=== PATIENT | female | born 1980 | race Caucasian/White ===

== ENCOUNTER 2017-11-02 20:42 | Inpatient (IN) | payer MEDICAID, OTHER ==
[2017-11-02] MEDS ORDERED: TYLENOL PO PRN (21:34)
[2017-11-02] MEDS ORDERED: LACTATED RINGERS 1,000 ML IV SCH ×2 (22:00→23:00)
[2017-11-02 22:08] LABS: Basophils % (Auto) 0.6 % (0.0-1.8); Eosinophils % (Auto) 0.8 % (0.0-4.3); Hematocrit 27.1 % (30.3-42.9); Hemoglobin 8.1 gm/dl (10.1-14.3); Mean Corpuscular HGB Conc 30 % (30-34); Platelet Count 239 K/mm3 (140-440); Red Blood Count 4.03 M/mm3 (3.65-5.03); Red Cell Distribution Width 19.8 % (13.2-15.2); White Blood Count 11.8 K/mm3 (4.5-11.0)
[2017-11-02 22:09] LABS: Mean Corpuscular Hemoglobin 20 pg (28-32); Mean Corpuscular Volume 67 fl (79-97)
[2017-11-02] MEDS ORDERED: APRESOLINE IV ONE (22:15)
[2017-11-02] MEDS ORDERED: MAGNESIUM SULFATE 4GM/100ML 4 GM/100 ML BAG IV ONE (22:19)
[2017-11-02] MEDS ORDERED: CERVIDIL VG ONE (22:27)
[2017-11-02] MEDS ORDERED: POLYCILLIN/NS 2 GM/100 ML 2 GM/100 ML BAG IV ONE (22:27)
--- NOTE | 2017-11-02 22:41 | Ultrasound Report ---
FINAL REPORT EXAM: US OB BPP WO NON-STRESS HISTORY: decreased movement TECHNIQUE: Biophysical profile obstetrical ultrasound PRIORS: None. FINDINGS: Biophysical profile scoring 2 movement 2 tone 2 breathing 0 fluid 6/8 overall score heart rate 148 BPM. Only a tiny pocket of amniotic fluid could be identified measuring 0.9 cm in diameter. IMPRESSION: Biophysical profile score is 6/8
[2017-11-02 22:47] LABS: Alanine Aminotransferase 5 units/L (7-56); Albumin 2.8 g/dL (3.9-5); Albumin/Globulin Ratio 0.8 %; Alkaline Phosphatase 115 units/L (35-129); Anion Gap 17 mmol/L; BUN/Creatinine Ratio 20; Blood Urea Nitrogen 10 mg/dL (7-17); Carbon Dioxide 19 mmol/L (22-30); Glucose 95 mg/dL (65-100); Potassium 3.9 mmol/L (3.6-5.0); Sodium 134 mmol/L (137-145); Total Protein 6.5 g/dL (6.3-8.2)
--- NOTE | 2017-11-02 22:49 | History and Physical Report ---
History of Present Illness Date of examination: 11/02/17 Date of admission: 11/02/17 21:34 Chief complaint: Decreased movement for past 2 days; contractions since this morning. History of present illness: 37 year old presents to L&D complaining of contractions since this morning and decreased movement for the past 2 days. Patient states she has been receiving care since mid August at [facility]. She states that before that she did not receive any care. Patient does not speak Romanian. Patient does not have any records with her and no records are available in L&D [facility]. Patient reports she has type 2 diabetes which she had before ; she states she has not been following ADA diet, has not been checking her blood sugars (could not afford glucometer and test strips), and is not taking any medications for diabetes. Patient denies any history of hypertension. She states she has not had any problems with this other than the type 2 diabetes. Patient states she has not been tested for GBS. Patient states she had an ultrasound done at the clinic sometime in August 2017 which said her due date is 11/25/17. Thus patient would be 36 weeks, 5 days gestation today. Patient reports she has a headache. She denies visual changes or nausea/vomiting. She states she has had some swelling in her legs and feet. Denies generalized edema. Patient has had 2 previous vaginal births. She denies any history of surgeries in the past. She is currently taking a PNV daily. She denies any medication allergies. Past History Past Medical History: diabetes (type 2 diabetes (existed before )), other (obesity) Past Surgical History: no surgical history TOWER HAND History: denies: fibroids, herpes Family/Genetic History: none Social history: , lives with family, full code. denies: smoking, alcohol abuse, prescription drug abuse, IV drug use - Obstetrical History Expected Date of Delivery: 11/25/17 Actual Gestation: 36 Week(s) 5 Day(s) : 3 Para: 2 Hx # Term Pregnancies: 2 Number of Pregnancies: 1 Spontaneous Abortions: 0 Induced : 0 Number of Living Children: 2 Medications and Allergies Allergies Allergy/AdvReac Type Severity Reaction Status Date / Time No Known Drug Allergies Allergy none Verified 11/02/17 21:26 Active Meds: Active Medications Acetaminophen (Tylenol) 650 mg PO Q4H PRN PRN Reason: Pain MILD(1-3)/Fever >100.5/RUBIO Dinoprostone (Cervidil) 10 mg VG ONCE ONE Stop: 11/02/17 22:28 Hydralazine HCl (Apresoline) 10 mg IV ONCE ONE Stop: 11/02/17 22:16 Lactated Ringer's (Lactated Ringers) 1,000 mls @ 125 mls/hr IV DIRECT SABINE Magnesium Sulfate (Magnesium Sulfate 40gm/1000ml) 40 gm in 1,000 mls @ 50 mls/ hr IV DIRECT SABINE PRN Reason: 2 GM/HR Magnesium Sulfate (Magnesium Sulfate 4gm/100ml) 4 gm in 100 mls @ 300 mls/hr IV ONCE ONE Stop: 11/02/17 22:38 Ampicillin Sodium (Polycillin/Ns 2 Gm/100 Ml) 2 gm in 100 mls @ 100 mls/hr IV ONCE ONE PRN Reason: Protocol Stop: 11/02/17 23:26 Lactated Ringer's (Lactated Ringers) 1,000 mls @ 125 mls/hr IV DIRECT SABINE Oxytocin/Sodium Chloride (Pitocin/Ns 20 Unit/1000ml Drip) 20 units in 1,000 mls @ 125 mls/hr IV DIRECT SABINE Ampicillin Sodium (Polycillin/Ns 1 Gm/50 Ml) 1 gm in 50 mls @ 100 mls/hr IV Q4HR SABINE PRN Reason: Protocol Labetalol HCl (Normodyne) 200 mg PO BID [facility] Review of Systems All systems: negative (contractions since this morning and decreased movement for 2 days and headache today) - Vital Signs Vital signs: Vital Signs Pulse BP 77 180/86 11/02/17 21:02 11/02/17 21:02 Temp Pulse Resp BP Pulse Ox 97.1 F L 66 18 166/79 100 11/02/17 22:05 11/02/17 22:37 11/02/17 22:05 11/02/17 22:11 11/02/17 22:37 - Physical Exam Cardiovascular: Regular rate, Normal S1, Normal S2 Lungs: Positive: Clear to auscultation Abdomen: Positive: normal appearance, soft. Negative: distention, tenderness, guarding, rigidity Genitourinary (Female): Positive: normal external genitalia, normal perenium Vagina: Positive: normal moisture Uterus: Positive: enlarged. Negative: tender Anus/Rectum: Positive: normal perianal skin Extremities: Positive: normal, edema (mild bilateral pedal edema). Negative: tenderness - Obstetrical FHR: category 2 (FHR baseline 150 with minimal to moderate variability and occasional variable FHR deceleration (variables improved with position change and O2)) Uterine Contraction Monitor Mode: External Cervical Dilatation: 1 Cervical Effacement Percentage: 70 station: -3 Uterine Contraction Pattern: Absent Results Result Diagrams: 11/02/17 21:50 11/02/17 21:50 Abnormal lab results 11/02/17 11/02/17 Range/Units 21:12 21:50 WBC 11.8 H (4.5-11.0) K/mm3 Hgb 8.1 L (10.1-14.3) gm/dl Hct 27.1 L (30.3-42.9) % MCV 67 L (79-97) fl MCH 20 L (28-32) pg RDW 19.8 H (13.2-15.2) % Coleman % (Auto) 7.7 H (0.0-7.3) % Coleman # 0.9 H (0.0-0.8) K/mm3 Seg Neutrophils # 8.1 H (1.8-7.7) K/mm3 POC Glucose 108 H (70-105) All other labs normal. Assessment and Plan A: at 36 weeks, 5 days gestation. Severe preeclampsia. GBS unknown. Type 2 diabetes (not controlled during ). 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 P: Admit. GBS prophylaxis. Medication to lower BP. Magnesium Sulfate prophylaxis. Preeclamptic labs and 24 hour urine. Consult[address] with Dr. King regarding care of this patient. Informed Dr. King regarding severe preeclampsia, diabetes, oligohydramnios, late gestation (and measuring small for dates on US), and interventions ordered and taken. Dr. King states he agrees with management plan and cervical ripening/induction of labor for preeclampsia. Discussed management plan with patient. Patient states she agrees with management plan. Discussed with patient risks and benefits of Cervidil cervical ripening and Pitocin induction of labor. Patient consented to Cervidil cervical ripening and Pitocin induction of labor.
[2017-11-02] MEDS ORDERED: PITOCin/NS 20 UNIT/1000ML DRIP 20 UNITS/1,000 ML BAG IV SCH (23:00)
[2017-11-02 23:08] LABS: HIV-1 Antigen p24 Non React (Non React); HIVR-1/2 Ab Non React (Non React)
[2017-11-02] MEDS: MAGNESIUM SULFATE 40GM/1000ML 40 GM/1,000 ML BAG IV SCH (23:19)
[2017-11-02 23:30] LABS: Bilirubin,Urine NEG (Negative); Blood,Urine NEG (Negative); Ketones,Urine NEG (Negative); Leukocyte Esterase,Urine NEG (Negative); Nitrite,Urine NEG (Negative); Urobilinogen,Urine < 2.0 mg/dL (<2.0)
[2017-11-03] MEDS: PITOCin/NS 30 UNIT/500ML 30 UNITS/500 ML BAG IV SCH ×2 (00:03→01:01)
[2017-11-03] MEDS: NORMODYNE PO SCH ×3 (00:09→21:19)
[2017-11-03] MEDS ORDERED: BICITRA PO ONE (01:50)
[2017-11-03] MEDS ORDERED: REGLAN IV ONE (01:50)
[2017-11-03] MEDS ORDERED: PEPCID IV ONE (01:50)
[2017-11-03] MEDS ORDERED: EMLA TP PRN (01:50)
[2017-11-03] MEDS ORDERED: PITOCin/NS 20 UNIT/1000ML DRIP 20 UNITS/1,000 ML BAG IV SCH ×2 (02:00→05:00)
[2017-11-03] MEDS ORDERED: ANCEF/STERILE WATER 2 GM/20 ML 2 GM/20 ML SYRINGE IV NR (02:00)
[2017-11-03] MEDS ORDERED: LACTATED RINGERS 1,000 ML IV SCH (02:00)
[2017-11-03] MEDS ORDERED: MORPHINE ONE (02:29)
--- NOTE | 2017-11-03 02:32 | Anesthesia Consultation ---
Anesthesia Consult and Med Hx Date of service: 11/03/17 - Airway Anesthetic Teeth Evaluation: Good ROM Head & Neck: Inadequate Mental/Hyoid Distance: Adequate Mallampati Class: Class III Intubation Access Assessment: Possibly Difficult - Pulmonary Exam CTA: Yes - Cardiac Exam Cardiac Exam: RRR Anesthetic Concerns: R upper central incisor loose - Pre-Operative Health Status ASA Pre-Surgery Classification: ASA3, Emergency Proposed Anesthetic Plan: Spinal - Pulmonary Hx Asthma: No - Cardiovascular System Hx Hypertension: Yes (PIH) - Central Nervous System Hx Seizures: No Hx Psychiatric Problems: No - Endocrine Hx Renal Disease: No Hx Non-Insulin Dependent Diabetes: Yes Hx Hypothyroidism: No Hx Hyperthyroidism: No - Hematic Hx Anemia: No Hx Sickle Cell Disease: No - Other Systems Hx Alcohol Use: No Hx Obesity: Yes
--- NOTE | 2017-11-03 02:32 | Anesthesia Day of Surgery ---
Anesthesia Day of Surgery - Day of Surgery Patient Examined: Yes Patient H&P Reviewed: Yes Patient is NPO: Yes
[2017-11-03] MEDS ORDERED: POLYCILLIN/NS 1 GM/50 ML 1 GM/50 ML BAG IV SCH (02:34)
[2017-11-03] MEDS ORDERED: WATER FOR IRRIG STERILE IR ONE (03:00)
[2017-11-03] MEDS ORDERED: NACL 0.9% IR ONE (03:00)
[2017-11-03] MEDS ORDERED: ANCEF IV ONE (03:00)
[2017-11-03] MEDS ORDERED: ZOFRAN ONE (03:20)
[2017-11-03] MEDS ORDERED: NEO SYNEPHRINE/NS Syringe(OR USE) IV ONE (03:26)
--- NOTE | 2017-11-03 04:02 | Operative Report ---
Operative Report Operative Report: DATE: 11/03/2017 PREOPERATIVE DIAGNOSIS: 37-year-old at 36+4 weeks, Diabetes type 2, IUGR, preeclampsia, category 2 tracing POSTOP DIAGNOSIS: As above NAME OF PROCEDURE: Primary low transverse section SURGEON: ARNOLD MEHTA MD SURGERY NURSE: [] ANESTHESIA: Spinal EBL: 500 mL PATHOLOGY SPECIMEN: None URINE OUTPUT: 75 mL FINDINGS: Female infant in cephalic presentation, time of delivery 3:18 AM, weight 4 lbs. 5 oz. or 1949 g, Apgars 8 and 9, normal uterus tubes and ovaries bilaterally DESCRIPTION OF PROCEDURE: After informed consent, patient was taken to the operating room where she was prepped and draped in a sterile fashion. Pfannestial incision was performed 2 cm above the pubic symphysis. This was then carried down to the underlying rectus fascia which was scored in the midline. The fascial incision was extended laterally with the use of Leong scissors, anterior leaf was then grasped with Sandra's elevated dissected sharply and bluntly off the underlying rectus. In a similar fashion the inferior leaf was grasped elevated dissected sharply and bluntly off the underlying rectus. The rectus was in the midline and the peritoneal cavity was entered without difficulty. After good visualization of the bladder the peritoneal layer was extended up and down; bladder blade was placed in the patient's pelvic cavity, bladder flap was created without difficulty. A hysterotomy incision was then performed with clear amniotic fluid noted. Infant in cephalic presentation was delivered without difficulty in the usual manner; cord was clamped cut and was handed over to waiting NICU staff. The placenta was then delivered intact, the uterus was then exteriorized cleared of all clots and debris. Her hysterotomy incision was then closed in a running locked fashion with 0 Vicryl on a CTX; using the same suture were able to imbricate the initial layer. The uterus was then returned to the patient's pelvic cavity; the peritoneal edges were grasped with hemostats and Lay's; irrigation was used to clear the gutters of all clots and debris. Tisseel hemostatic agent was applied copiously over the hysterotomy incision. The peritoneal layer was closed in a running fashion with 3-0 Vicryl; the rectus was reapproximated with a single [id number] stitch. The fascia was then closed in a running fashion with 0 Vicryl; the subcutaneous layer was reapproximated with a single [id number] stitch. The skin was then closed in a subcuticular manner with 4-0 Monocryl. She tolerated the procedure well lap and instrument counts were correct 2, she did receive 2 grams of Ancef prior to the procedure. She is transferred to PACU in stable condition.
[2017-11-03] MEDS ORDERED: TORADOL IV PRN (04:04)
[2017-11-03] MEDS ORDERED: LANSINOH TP PRN (04:04)
[2017-11-03] MEDS ORDERED: SENOKOT PO PRN (04:04)
[2017-11-03] MEDS ORDERED: ANUCORT-HC PR PRN (04:04)
[2017-11-03] MEDS ORDERED: NARCAN 0.4 MG/1 ML IV PRN (04:04)
[2017-11-03] MEDS ORDERED: TUCKS PAD TP PRN (04:04)
[2017-11-03] MEDS ORDERED: ZOFRAN IV PRN ×2 (04:04→04:18)
[2017-11-03] MEDS ORDERED: MYLICON PO PRN (04:04)
[2017-11-03] MEDS ORDERED: APRESOLINE IV PRN (04:08)
[2017-11-03] MEDS ORDERED: D50W (25GM) Syringe IV PRN (04:10)
--- NOTE | 2017-11-03 04:17 | Post Anesthesia Evaluation ---
- Post Anesthesia Evaluation Patient Participated: Yes Airway Patent: Yes Stable Respiratory Function: Yes Temp > 96.8F: Yes Pain Manageable: Yes Adequeate Hydration: Yes Anesthesia Complications: No Block Receding Appropriately: Yes
[2017-11-03] MEDS ORDERED: DILAUDID IV PRN (04:19)
[2017-11-03] MEDS ORDERED: MORPHINE IV PRN (04:20)
[2017-11-03] MEDS ORDERED: D5LR 1,000 ML IV SCH (05:00)
[2017-11-03] MEDS ORDERED: SODIUM CHLORIDE FLUSH SYRINGE 10 ML IV NR (05:00)
[2017-11-03] MEDS: MAGNESIUM SULFATE 40GM/1000ML 40 GM/1,000 ML BAG IV SCH (05:14)
[2017-11-03] MEDS: PERCOCET 5/325 PO PRN (18:20)
[2017-11-03 19:32] LABS: Hematocrit 23.5 % (30.3-42.9); Hemoglobin 6.9 gm/dl (10.1-14.3)
--- NOTE | 2017-11-03 21:39 | Event Note ---
Date: 11/03/17 Hemoglobin 6.9. Hematocrit 23.5. Spoke with patient and informed her of H/H results. Patient declined blood transfusion. Patient states she is not symptomatic at this time.
[2017-11-04] MEDS: PERCOCET 5/325 PO PRN ×3 (03:53→18:23)
[2017-11-04] MEDS ORDERED: M-M-R II VACCINE SUB-Q ONE (04:04)
[2017-11-04] MEDS ORDERED: BOOSTRIX IM ONE (04:04)
--- NOTE | 2017-11-04 07:56 | Ultrasound Report ---
FINAL REPORT EXAM: US OB FOLLOW UP HISTORY: abdominal pain, vaginal bleeding TECHNIQUE: Transabdominal imaging was obtained the pelvis along with Doppler interrogation of the fetus. FINDINGS: There is a viable intrauterine in cephalic presentation with a sonographic gestational age of approximately 33 weeks 0 days based on measurements. Estimated weight is 1998 grams. A complete survey of organs was not obtained. The placenta is fundal in position and is grade 2. The heart rate is 148 BPM. The cervical length is 2.1 centimeters. The cervix is closed. The LORNA is 2.7 centimeters which is decreased. There is no evidence of placenta previa or abruption. IMPRESSION: Thirty-three weeks 0 day in cephalic presentation. Estimated weight is 1998 grams. Oligohydramnios. The LORNA is 2.7 centimeters. Grade 2 fundal placenta. No evidence of abruption. The cervix is closed
--- NOTE | 2017-11-04 09:30 | Progress Note ---
Assessment and Plan - Patient Problems (1) 36 weeks gestation of Current Visit: Yes Status: Acute (2) delivery delivered Current Visit: Yes Status: Acute Plan to address problem: Routine post op care. (3) Pre-eclampsia affecting puerperium Current Visit: Yes Status: Acute Plan to address problem: Patient recieved magnesium sulftate. Her BP is stable. She will continue labetolol. Will continue BP monitoring. 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 She declined blood transfusion yesterday. Will do orthostatics BP/pulse this AM. (5) Diabetes Current Visit: Yes Status: Acute Qualifiers: Diabetes mellitus type: type 2 Plan to address problem: Patient is on insulin sliding scale. (6) Right calf pain Current Visit: Yes Status: Acute Plan to address problem: Venous doppler of the right lower extremity ordered STAT to r/o DVT. Subjective - Subjective Date of service: 11/04/17 Principal diagnosis: S/P C/section, pre-eclampsia, type-2 DM Interval history: Patient is a 37 year old who is S/P primary C/section 2 days ago for severe pre-eclampsia and non-reassuring tracing. She is also a type diabetic who has not been seeing any primary care doctor before this for glucose management. She was a late registrant to care and has been seen only once at [facility]. She had a sonogram which dated her with EDC of 11/25/17. She came in with contractions. Sonogram showed oligohydramnios and IUGR. Her BP was elevated and she was treated with magnesium sulfate. She was induced but the FHT became CAT 2 remote from delivery and she had a C/section. Magnesium sulfate was continued post operatively for pre-eclampsia. She is on finger stick with a sliding scale insulin. Her course is also complicated by anemia with H/H of 6.9/23. She displayed symptoms yesterday and was offered blood transfusion which she declined. This AM, her fasting glucose was 66, BP stable. She complains of dizziness but denies any chest pain or palpitation. CBC ordered stat. Orthostatic ordered. She also complains of right calf pain since last night. Venous doppler ordered to rule out DVT. She is otherwise tolerating regular diet well. Objective - Vital Signs Latest vital signs: Vital Signs Temp Pulse Resp BP BP Pulse Ox 11/03/17 21:30 98.1 F 90 18 134/69 11/03/17 21:19 90 134/69 11/03/17 16:01 97.5 F L 87 18 133/73 97 11/03/17 12:26 97.5 F L 18 133/72 11/03/17 10:31 98.4 F 93 H 18 124/71 95 11/03/17 10:00 124/74 Intake and Output 11/03/17 11/04/17 11/04/17 23:59 07:59 15:59 Output Total 400 Balance -400 Output: Urine 400 Indwelling Catheter 400 Other: Intake, Other Source Saline Solution Total, Output Amount 400 # Voids Indwelling Catheter 1 Void 1 - Exam Cardiovascular: Present: Normal S1, Normal S2 Lungs: Present: Clear to auscultation Extremities: Present: other (Right calf TN) Deep Tendon Reflex Grade: Normal +2 - Labs Labs: Abnormal lab results 11/03/17 11/03/17 11/04/17 Range/Units 18:04 21:05 08:41 Hgb 6.9 L (10.1-14.3) gm/dl Hct 23.5 L (30.3-42.9) % POC Glucose 153 H 64 L (70-105)
[2017-11-04 09:41] LABS: Basophils % (Auto) 0.8 % (0.0-1.8); Eosinophils % (Auto) 0.5 % (0.0-4.3); Hematocrit 21.4 % (30.3-42.9); Hemoglobin 6.4 gm/dl (10.1-14.3); Mean Corpuscular HGB Conc 30 % (30-34); Platelet Count 171 K/mm3 (140-440); Red Blood Count 3.19 M/mm3 (3.65-5.03); Red Cell Distribution Width 19.6 % (13.2-15.2); White Blood Count 11.1 K/mm3 (4.5-11.0)
[2017-11-04 09:42] LABS: Mean Corpuscular Hemoglobin 20 pg (28-32); Mean Corpuscular Volume 67 fl (79-97)
[2017-11-04] MEDS: PRENATAL VITAMIN PO SCH (11:18)
[2017-11-04] MEDS: FEOSOL PO SCH (11:18)
[2017-11-04] MEDS: NORMODYNE PO SCH ×2 (11:19→21:59)
[2017-11-04] MEDS ORDERED: NACL 0.9% 500 ML 500 ML IV NR (11:19)
--- NOTE | 2017-11-04 11:26 | Progress Note ---
Assessment and Plan - Patient Problems (1) 36 weeks gestation of Current Visit: Yes Status: Acute (2) delivery delivered Current Visit: Yes Status: Acute Plan to address problem: Routine post op care. (3) Pre-eclampsia affecting puerperium Current Visit: Yes Status: Acute Plan to address problem: Patient recieved magnesium sulftate which was discontinued yesterday. Her BP is stable. She will continue labetolol. Will continue BP monitoring. 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 She declined blood transfusion yesterday. She is currently orthostatic (BP/pulse). 2 units PRBC transfusion ordered. CBC 3 hrs after second unit. Nurse Marian was made aware of that order. (5) Diabetes Current Visit: Yes Status: Acute Qualifiers: Diabetes mellitus type: type 2 Plan to address problem: Patient is on insulin sliding scale. Will continue FS. (6) Deep vein thrombosis Current Visit: Yes Status: Acute Plan to address problem: Venous doppler result was discussed with patient. Lovenox 1mg/kg S.C every 12 hours ordered, first alexandre to be given STAT. Nurse Fonseca was called and told that this ordered has been written and patient needs to get the lovenox diana. Subjective - Subjective Date of service: 11/04/17 Principal diagnosis: S/P C/section, pre-eclampsia, type-2 DM, right leg DVT, symptomatic anemia Interval history: Patient is a 37 year old who is S/P primary C/section 2 days ago for severe pre-eclampsia and non-reassuring tracing. She is also a type 2 diabetic who has not been seeing any primary care doctor before this for glucose management. She was a late registrant to care and has been seen only once at [facility]. On admission, her BP was elevated and she was treated with magnesium sulfate for pre-eclampsia. She was induced but the FHT became CAT 2 remote from delivery and she had a C/section. Magnesium sulfate was continued post operatively and discontinued yesterday. She is on finger stick with a sliding scale insulin. Her course is also complicated by anemia with H/H of 6.9/. She displayed symptoms yesterday and was offered blood transfusion which she declined. This AM, she complains of dizziness but denies any chest pain or palpitation. CBC at 9:30 showed H/H of 6.2/ and she is currently orthostatic. Her fasting glucose was 66 and she is otherwise tolerating regular diet well. She is on labetolol and BP is stable. She also complains of right calf pain since last night. Venous doppler showed right peroneal vein thrombosis. Objective - Vital Signs Latest vital signs: Vital Signs Temp Pulse Resp BP BP Pulse Ox 11/04/17 11:19 122/78 11/04/17 09:48 96 H 20 139/70 95 11/04/17 09:46 103 H 20 114/54 96 11/04/17 09:45 92 H 18 137/72 96 11/04/17 08:24 98.0 F 90 18 138/71 99 11/03/17 21:30 98.1 F 90 18 134/69 11/03/17 21:19 90 134/69 11/03/17 16:01 97.5 F L 87 18 133/73 97 11/03/17 12:26 97.5 F L 18 133/72 Intake and Output 11/03/17 11/04/17 11/04/17 23:59 07:59 15:59 Intake Total 240 Output Total 400 Balance -400 240 Intake: Oral 120 Intake, Free Water 120 Output: Urine 400 Indwelling Catheter 400 Other: Intake, Other Source Saline Solution Total, Intake Amount 120 Total, Output Amount 400 # Voids Indwelling Catheter 1 Void 1 1 - Exam Cardiovascular: Present: Normal S1, Normal S2 Lungs: Present: Clear to auscultation Extremities: Present: other (right calf TN and + Virginia's sign.) Deep Tendon Reflex Grade: Normal +2 - Labs Labs: Abnormal lab results 11/02/17 11/03/17 11/03/17 Range/Units 21:50 18:04 21:05 WBC (4.5-11.0) K/mm3 RBC (3.65-5.03) M/mm3 Hgb 6.9 L (10.1-14.3) gm/dl Hct 23.5 L (30.3-42.9) % MCV (79-97) fl MCH (28-32) pg RDW (13.2-15.2) % Seg Neutrophils % (40.0-70.0) % Seg Neutrophils # (1.8-7.7) K/mm3 POC Glucose 153 H (70-105) Crossmatch See Detail 11/04/17 11/04/17 Range/Units 08:41 09:24 WBC 11.1 H (4.5-11.0) K/mm3 RBC 3.19 L (3.65-5.03) M/mm3 Hgb 6.4 L (10.1-14.3) gm/dl Hct 21.4 L (30.3-42.9) % MCV 67 L (79-97) fl MCH 20 L (28-32) pg RDW 19.6 H (13.2-15.2) % Seg Neutrophils % 79.3 H (40.0-70.0) % Seg Neutrophils # 8.8 H (1.8-7.7) K/mm3 POC Glucose 64 L (70-105) Crossmatch
[2017-11-04] MEDS ORDERED: Fluarix Quad 2017-2018(36 MOS+ IM ONE (12:00)
[2017-11-04] MEDS: LOVENOX SUB-Q SCH ×2 (12:21→22:01)
[2017-11-04 13:06] LABS: Basophils % (Auto) 0.4 % (0.0-1.8); Eosinophils % (Auto) 0.6 % (0.0-4.3); Hematocrit 21.9 % (30.3-42.9); Hemoglobin 6.5 gm/dl (10.1-14.3); Mean Corpuscular HGB Conc 30 % (30-34); Platelet Count 179 K/mm3 (140-440); Red Blood Count 3.24 M/mm3 (3.65-5.03); Red Cell Distribution Width 19.8 % (13.2-15.2); White Blood Count 13.1 K/mm3 (4.5-11.0)
[2017-11-04 13:07] LABS: Mean Corpuscular Hemoglobin 20 pg (28-32); Mean Corpuscular Volume 68 fl (79-97)
[2017-11-05] MEDS: PERCOCET 5/325 PO PRN ×3 (05:04→20:41)
--- NOTE | 2017-11-05 08:10 | Vascular Lab Report ---
Right Lower Extremity Venous Duplex Study: Reason for Exam: Pain of the right lower extremity. Comments on the Right: Acute deep venous thrombosis is noted in the peroneal vein. The remaining veins visualized are freely compressible without evidence of internal echogenicity. Spontaneous and phasic flow is present proximally. Comments on the Left: A limited duplex study was done of the proximal veins of the left lower extremity. All veins visualized are freely compressible without evidence of internal echogenicity. Flow is spontaneous and phasic throughout. No evidence of acute or chronic thrombus is seen in any of the vessels visualized. Impression: Acute DVT in the right lower extremity.
--- NOTE | 2017-11-05 09:12 | Event Note ---
Date: 11/05/17 S: Still with pain in in right calf, otherwise feels ok. Asking when she can go home O: BP 140/80's - 130/80's A: S/P POD 2 Right leg DVT P; Continue post op care
[2017-11-05] MEDS: PRENATAL VITAMIN PO SCH (09:52)
[2017-11-05] MEDS: FEOSOL PO SCH (09:52)
[2017-11-05] MEDS: LOVENOX SUB-Q SCH ×2 (09:53→22:18)
[2017-11-05] MEDS: NORMODYNE PO SCH ×2 (09:53→22:21)
[2017-11-05] MEDS ORDERED: NORCO 7.5/325 PO PRN (13:42)
[2017-11-05] MEDS ORDERED: MOTRIN PO SCH (14:00)
[2017-11-06] MEDS: PERCOCET 5/325 PO PRN ×2 (06:57→17:01)
[2017-11-06] MEDS: PRENATAL VITAMIN PO SCH ×2 (10:29→10:30)
[2017-11-06] MEDS: NORMODYNE PO SCH ×2 (10:29→22:58)
[2017-11-06] MEDS: FEOSOL PO SCH (10:30)
[2017-11-06] MEDS: LOVENOX SUB-Q SCH ×2 (10:30→22:58)
--- NOTE | 2017-11-06 11:24 | Progress Note ---
Assessment and Plan - Patient Problems (1) 36 weeks gestation of Current Visit: Yes Status: Acute (2) delivery delivered Current Visit: Yes Status: Acute Plan to address problem: Routine post op care. (3) Pre-eclampsia affecting puerperium Current Visit: Yes Status: Acute Plan to address problem: Patient recieved magnesium sulftate which was discontinued after 24 hours. Her BP is stable. She will continue labetolol. Will continue BP monitoring. (4) Anemia Current Visit: Yes Status: Acute Qualifiers: Anemia type: iron deficiency Iron deficiency anemia type: chronic blood loss Qualified Code(s): D50.0 - Iron deficiency anemia secondary to blood loss (chronic) Plan to address problem: Patient reported dizziness 2 days ago. She was orthostatic (BP/pulse). 2 units PRBC transfusion were ordered. But, patient refused the transfusion and said that she did not have any more dizziness. Her son and were present and translated. They understaood the reason for the transfusion and explained that to the patient. Patient said that she understood as well. Will do CbC before discharge from hospital. (5) Diabetes Current Visit: Yes Status: Acute Qualifiers: Diabetes mellitus type: type 2 Plan to address problem: Patient is on insulin sliding scale. Will continue FS. (6) Deep vein thrombosis Current Visit: Yes Status: Acute Plan to address problem: Venous doppler result was discussed with patient. She has been on lovenox. Will reasess her in AM. Subjective - Subjective Date of service: 11/06/17 Principal diagnosis: S/P C/section, pre-eclampsia, type-2 DM, right leg DVT, symptomatic anemia Interval history: Patient is a 37 year old who is S/P primary C/section 3 days ago for severe pre-eclampsia and non-reassuring tracing. She is also a type 2 diabetic who has not been seeing any primary care doctor before this for glucose management. She was a late registrant to care and has been seen only once at [facility]. She is S/P C/section for NRFHT. She is POD # 3 today. She had calf pain 2 days ago and venous doppler showed right peroneal vein thrombosis. She was started on lovenox therapeutic dose. This AM, she still c/o pain in her right calf but less than before. She denies any bruising. Objective - Vital Signs Latest vital signs: Vital Signs Temp Pulse Resp BP BP Pulse Ox 11/06/17 10:29 75 143/71 11/06/17 08:56 98.3 F 79 20 152/77 97 11/06/17 04:00 98.6 F 88 18 142/76 95 11/06/17 00:40 98.9 F 93 H 18 144/74 94 11/05/17 22:21 81 144/76 11/05/17 17:30 98.2 F 105 H 20 168/91 11/05/17 12:00 97.9 F 104 H 20 155/72 Intake and Output 11/05/17 11/06/17 11/06/17 23:59 07:59 15:59 Intake Total 240 Balance 240 Intake: Oral 240 Other: Total, Intake Amount 120 # Voids Void 1 - Exam Cardiovascular: Present: Normal S1, Normal S2 Lungs: Present: Clear to auscultation Vulva: both: normal Extremities: Present: other (TN in right calf, + Virginia's sign.) Deep Tendon Reflex Grade: Normal +2 - Labs Labs: Abnormal lab results 11/02/17 Range/Units 21:50 Crossmatch See Detail
[2017-11-07] MEDS: PERCOCET 5/325 PO PRN (04:57)
--- NOTE | 2017-11-07 08:42 | Progress Note ---
Assessment and Plan - Patient Problems (1) 36 weeks gestation of Current Visit: Yes Status: Acute (2) delivery delivered Current Visit: Yes Status: Acute Plan to address problem: Routine post op care. (3) Pre-eclampsia affecting puerperium Current Visit: Yes Status: Acute Plan to address problem: Patient recieved magnesium sulftate which was discontinued after 24 hours. Her BP has been stable. She will continue labetolol. Will continue BP monitoring. (4) Anemia Current Visit: Yes Status: Acute Qualifiers: Anemia type: iron deficiency Iron deficiency anemia type: chronic blood loss Qualified Code(s): D50.0 - Iron deficiency anemia secondary to blood loss (chronic) Plan to address problem: Patient reported dizziness 2 days ago. She was orthostatic (BP/pulse). 2 units PRBC transfusion were ordered. But, patient refused the transfusion and said that she did not have any more dizziness. Her son and were present and translated. They understaood the reason for the transfusion and explained that to the patient. Patient said that she understood as well. Today, she denies any dizziness. Will continue to monitor her. Will do CBC before discharge from hospital. (5) Diabetes Current Visit: Yes Status: Acute Qualifiers: Diabetes mellitus type: type 2 Plan to address problem: Patient is on insulin sliding scale. Will continue FS. (6) Deep vein thrombosis Current Visit: Yes Status: Acute Plan to address problem: Venous doppler result was discussed with patient. She has been on lovenox. Will reasess her in AM. Subjective - Subjective Date of service: 11/07/17 Principal diagnosis: S/P C/section, pre-eclampsia, type-2 DM, right leg DVT, symptomatic anemia Interval history: Patient is a 37 year old who is S/P primary C/section 4 days ago for severe pre-eclampsia and non-reassuring tracing. She is also a type 2 diabetic who has not been seeing any primary care doctor before this for glucose management. She was a late registrant to care and has been seen only once at [facility]. She is S/P C/section for NRFHT. She is POD # 4 today. Her blood glucose and BP have been normal. She had calf pain 3 days ago and venous doppler showed right peroneal vein thrombosis. She was started on lovenox therapeutic dose. This AM, she still c/o pain in her right calf but less than before. She denies any bruising. Exam: tenderness in the right calf/popliteal area. I told the patient that will continue the lovenox and reassess her tomorrow. Objective - Vital Signs Latest vital signs: Vital Signs Temp Pulse Resp BP BP Pulse Ox 11/07/17 04:20 98.9 F 86 20 150/68 94 11/07/17 00:20 98.9 F 89 20 154/68 92 11/06/17 22:58 83 171/87 11/06/17 21:35 98.7 F 80 20 171/87 92 11/06/17 17:01 20 11/06/17 16:45 98.5 F 85 20 151/73 11/06/17 10:29 75 143/71 11/06/17 10:00 97.8 F 97 H 20 148/76 11/06/17 08:56 98.3 F 79 20 152/77 97 Intake and Output 11/06/17 11/07/17 11/07/17 23:59 07:59 15:59 Intake Total 240 120 Balance 240 120 Intake: Oral 240 120 Other: Total, Intake Amount 120 120 # Voids Void 1 1 - Exam Cardiovascular: Present: Normal S1, Normal S2 Lungs: Present: Clear to auscultation Vulva: both: normal Deep Tendon Reflex Grade: Normal +2
[2017-11-07] MEDS: PRENATAL VITAMIN PO SCH (10:36)
[2017-11-07] MEDS: LOVENOX SUB-Q SCH ×2 (10:36→22:45)
[2017-11-07] MEDS: FEOSOL PO SCH (10:37)
[2017-11-07] MEDS: NORMODYNE PO SCH ×2 (10:37→22:25)
[2017-11-08] MEDS: NORMODYNE PO SCH ×3 (09:03→22:49)
[2017-11-08] MEDS: LOVENOX SUB-Q SCH ×3 (09:04→22:51)
[2017-11-08] MEDS: PRENATAL VITAMIN PO SCH (09:04)
[2017-11-08] MEDS: FEOSOL PO SCH (09:04)
[2017-11-08] MEDS: PERCOCET 5/325 PO PRN ×2 (09:05→22:50)
--- NOTE | 2017-11-08 14:14 | Progress Note ---
Assessment and Plan - Patient Problems (1) 36 weeks gestation of Current Visit: Yes Status: Acute (2) delivery delivered Current Visit: Yes Status: Acute Plan to address problem: Routine post op care. (3) Pre-eclampsia affecting puerperium Current Visit: Yes Status: Acute Plan to address problem: Patient recieved magnesium sulftate which was discontinued after 24 hours. Her BP has been stable. She will continue labetolol. Will continue BP monitoring. (4) Anemia Current Visit: Yes Status: Acute Qualifiers: Anemia type: iron deficiency Iron deficiency anemia type: chronic blood loss Qualified Code(s): D50.0 - Iron deficiency anemia secondary to blood loss (chronic) Plan to address problem: Patient reported dizziness 3 days ago. She was orthostatic (BP/pulse). 2 units PRBC transfusion were ordered. But, patient refused the transfusion and said that she did not have any more dizziness. Her son and were present and translated. They understood the reason for the transfusion and explained that to the patient. Patient said that she understood as well. Today, she denies any dizziness. Will continue to monitor her. Will do CBC before discharge from hospital. (5) Diabetes Current Visit: Yes Status: Acute Qualifiers: Diabetes mellitus type: type 2 (6) Deep vein thrombosis Current Visit: Yes Status: Acute Plan to address problem: Venous doppler showed DVT. She has been on lovenox. Will reasess her in AM. Subjective - Subjective Date of service: 11/08/17 Principal diagnosis: S/P C/section, pre-eclampsia, type-2 DM, right leg DVT, symptomatic anemia Interval history: Patient is a 37 year old who is S/P primary C/section 5 days ago for severe pre-eclampsia and non-reassuring tracing. She is also a type 2 diabetic who has not been seeing any primary care doctor before this for glucose management. She was a late registrant to care and has been seen only once at [facility]. She is S/P C/section for NRFHT. She is POD # 5 today. Her blood glucose and BP have been normal. She had calf pain 4 days ago and venous doppler showed right peroneal vein thrombosis. She was started on lovenox therapeutic dose. This AM, she still c/o pain in her right calf but less than before. She denies any bruising. Exam: tenderness in the right calf/popliteal area. I told the patient that will continue the lovenox and reassess her tomorrow. Objective - Vital Signs Latest vital signs: Vital Signs Temp Pulse Resp BP BP Pulse Ox 11/08/17 09:03 87 179/90 11/08/17 08:10 98.0 F 87 20 179/90 92 11/08/17 08:09 81 98 11/08/17 08:08 98.0 F 83 20 179/90 95 11/08/17 00:00 98.6 F 80 20 158/71 11/07/17 22:25 147/70 11/07/17 18:45 98.4 F 84 20 159/72 97 Intake and Output 11/07/17 11/08/17 11/08/17 23:59 07:59 15:59 Intake Total 120 240 Balance 120 240 Intake: Oral 120 240 Other: Total, Intake Amount 120 240 # Voids Void 1 1 - Exam Cardiovascular: Present: Normal S1, Normal S2 Lungs: Present: Clear to auscultation
--- NOTE | 2017-11-09 09:23 | Progress Note ---
Assessment and Plan - Patient Problems (1) 36 weeks gestation of Current Visit: Yes Status: Acute (2) delivery delivered Current Visit: Yes Status: Acute Plan to address problem: Routine post op care. (3) Pre-eclampsia affecting puerperium Current Visit: Yes Status: Acute Plan to address problem: Patient recieved magnesium sulftate which was discontinued after 24 hours. Her BP has been stable. She will continue labetolol. Will continue BP monitoring. (4) Anemia Current Visit: Yes Status: Acute Qualifiers: Anemia type: iron deficiency Iron deficiency anemia type: chronic blood loss Qualified Code(s): D50.0 - Iron deficiency anemia secondary to blood loss (chronic) Plan to address problem: Patient reported dizziness 4 days ago. She was orthostatic (BP/pulse). 2 units PRBC transfusion were ordered. But, patient refused the transfusion and said that she did not have any more dizziness. Her son and were present and translated. They understood the reason for the transfusion and explained that to the patient. Patient said that she understood as well. Today, she denies any dizziness. Will continue to monitor her. Will do CBC before discharge from hospital. (5) Diabetes Current Visit: Yes Status: Acute Qualifiers: Diabetes mellitus type: type 2 Plan to address problem: Patient is on insulin sliding scale. Will continue FS. (6) Deep vein thrombosis Current Visit: Yes Status: Acute Plan to address problem: Venous doppler showed DVT. She has been on lovenox. Will reasess her in AM. Subjective - Subjective Date of service: 11/09/17 Principal diagnosis: S/P C/section, pre-eclampsia, type-2 DM, right leg DVT, symptomatic anemia Interval history: Patient is a 37 year old who is S/P primary C/section 6 days ago for severe pre-eclampsia and non-reassuring tracing. She is also a type 2 diabetic who has not been seeing any primary care doctor before this for glucose management. She was a late registrant to care and has been seen only once at [facility]. She is S/P C/section for NRFHT. She is POD # 6 today. Her blood glucose and BP have been normal. She had calf pain 4 days ago and venous doppler showed right peroneal vein thrombosis. She was started on lovenox therapeutic dose. This AM, she still c/o pain in her right calf but less than before. She denies any bruising. Exam: tenderness in the right calf/popliteal area but with decreasing intensity. I told the patient that will continue the lovenox and reassess her tomorrow. Objective - Vital Signs Latest vital signs: Vital Signs Temp Pulse Resp BP BP Pulse Ox 11/09/17 07:39 97.6 F 87 18 143/77 11/09/17 02:35 98.4 F 87 20 139/73 95 11/08/17 22:49 89 169/70 11/08/17 18:05 98.1 F 11/08/17 18:04 89 165/70 96 Intake and Output 11/08/17 11/09/17 11/09/17 23:59 07:59 15:59 Intake Total 550 360 Output Total 800 Balance -250 360 Intake: Oral 550 Intake, Free Water 360 Output: Urine 800 Void 800 Other: Total, Intake Amount 550 Total, Output Amount 800 # Voids Void 2 - Exam Cardiovascular: Present: Normal S1, Normal S2 Lungs: Present: Clear to auscultation Vulva: both: normal - Labs Labs: Abnormal lab results 11/09/17 Range/Units 07:41 POC Glucose 66 L (70-105)
[2017-11-09] MEDS: PRENATAL VITAMIN PO SCH (09:24)
[2017-11-09] MEDS: NORMODYNE PO SCH (09:24)
[2017-11-09] MEDS: FEOSOL PO SCH (09:24)
[2017-11-09] MEDS: LOVENOX SUB-Q SCH (09:25)
[2017-11-09] MEDS: PERCOCET 5/325 PO PRN (14:04)
--- NOTE | 2017-11-10 10:50 | Progress Note ---
Assessment and Plan - Patient Problems (1) 36 weeks gestation of Current Visit: Yes Status: Acute (2) delivery delivered Current Visit: Yes Status: Acute Plan to address problem: Routine post op care. (3) Pre-eclampsia affecting puerperium Current Visit: Yes Status: Acute Plan to address problem: Patient recieved magnesium sulftate which was discontinued after 24 hours. Her BP has been stable. She will continue labetolol. Will continue BP monitoring. (4) Anemia Current Visit: Yes Status: Acute Qualifiers: Anemia type: iron deficiency Iron deficiency anemia type: chronic blood loss Qualified Code(s): D50.0 - Iron deficiency anemia secondary to blood loss (chronic) Plan to address problem: Patient reported dizziness postop. She was orthostatic (BP/pulse). 2 units PRBC transfusion were ordered. But, patient refused the transfusion and said that she did not have any more dizziness later that day. Her son and were present and translated. They understood the reason for the transfusion and explained that to the patient. Patient said that she understood as well. Today, she denies any dizziness. Will continue to monitor her. Will do CBC before discharge from hospital. (5) Diabetes Current Visit: Yes Status: Acute Qualifiers: Diabetes mellitus type: type 2 (6) Deep vein thrombosis Current Visit: Yes Status: Acute Plan to address problem: Venous doppler showed DVT. She has been on lovenox. Will repeat doppler ultrasound and reasess her for discharge in AM. Patient said that she has not been able to afford her glucose monitoring supplies during the . Will get pillowcase cleaner to see patient tomorrow to see if she can get her lovenox supplies to take home with her. Subjective - Subjective Date of service: 11/10/17 Principal diagnosis: S/P C/section, pre-eclampsia, type-2 DM, right leg DVT, symptomatic anemia Interval history: Patient is a 37 year old who is S/P primary C/section 7 days ago for severe pre-eclampsia and non-reassuring tracing. She is also a type 2 diabetic who has not been seeing any primary care doctor before this for glucose management. She was not monitoring her glucose during the because of money issues and not being able to afford a glucometer and supplies. She was a late registrant to care and has been seen only once at [facility]. She is S/P C/section for [facility]. She is POD #7 today. Her blood glucose and BP have been normal since her admission. She was diagnosed with right leg deep vein thrombosis. She was started on lovenox therapeutic dose. This AM, she still c/o pain in her right calf but less than before. She denies any bruising. Exam: tenderness in the right calf/popliteal area but with decreasing intensity. I told the patient that will continue the lovenox. Will do doppler tomorrow. She may be discharged home tomorrow on lovenox therapeutic dose. Objective - Vital Signs Latest vital signs: Vital Signs Temp Pulse Resp BP 11/09/17 16:21 98.3 F 78 18 150/82 - Exam Cardiovascular: Present: Normal S1, Normal S2 Lungs: Present: Clear to auscultation Vulva: both: normal Deep Tendon Reflex Grade: Normal +2 - Labs Labs: Abnormal lab results 11/09/17 Range/Units 17:43 POC Glucose 111 H (70-105)
[2017-11-10] MEDS: LOVENOX SUB-Q SCH ×2 (11:30→21:53)
[2017-11-10] MEDS: NORMODYNE PO SCH ×2 (11:30→21:50)
[2017-11-10] MEDS: FEOSOL PO SCH (11:30)
[2017-11-10] MEDS: PRENATAL VITAMIN PO SCH (11:30)
[2017-11-10] MEDS: PERCOCET 5/325 PO PRN ×2 (12:06→21:49)
[2017-11-11] MEDS: PERCOCET 5/325 PO PRN (05:27)
[2017-11-11] MEDS: NORMODYNE PO SCH (10:26)
[2017-11-11] MEDS: FEOSOL PO SCH (10:27)
[2017-11-11] MEDS: LOVENOX SUB-Q SCH (10:27)
[2017-11-11] MEDS: PRENATAL VITAMIN PO SCH (10:27)
--- NOTE | 2017-11-11 10:48 | Event Note ---
Date: 11/11/17 Patient seen, no new issues. No shortness of breath or chest pain, adequate bowel bladder function. Still has slight pain at the Right lower extremity otherwise unremarkable. Just spoke with Dr. Up of hematology. She can be discharged on Lovenox 90 mg every 12 and she should follow up in her office as soon as possible. Discussed above with the patient through associate sales representative. Explained the need to continue her Lovenox twice a day and to schedule follow up with hematology in our office. Issues: -Right lower extremity DVT -POD # 8 s/p 1ry LTCS - complicated by pre-eclampsia -Gestational diabetes Meds: -Lovenox 90 mg every 12 -Acetaminophen -Percocet (No ibuprofen) P: -Will discharge home at this time -Consulted case management for medication -Follow up with Dr. Up of hematology
--- NOTE | 2017-11-11 11:27 | Discharge Summary ---
Providers - Providers Date of Admission: 11/02/17 21:34 Date of discharge: 11/11/17 Attending physician: LILLIE CARLISLE MD 11/02/17 Consult to Case Management [CONS] Routine Services Needed at Discharge: [employer] Notified:: SOCIAL SERVICE Phone number called:: [phone] Was contact made?: Yes Additional Physician Instructions: Patient states she does not have enough money to buy glucometer 11/11/17 09:51 Consult to Physician [CONS] Urgent Consulting Provider: KERI MORALES Reason For Exam: DVT in right peroneal and soleal vein, C/S POD 8 Place consult to:: Hematology Notified:: nurse to call Phone number called:: [phone] Was contact made?: Yes If yes, spoke with:: bao Time called:: 10:01 Comment:: left message with anastasia dye office 11/11/17 10:55 Consult to Case Management [CONS] Routine Services Needed at Discharge: [facility] Additional Physician Instructions: Patient with DVT needs Lovenox at home. Unsure if she can afford prescription Primary care physician: LILLIE CARLISLE MD Hospitalization Reason for admission: IUP - , induction of labor Delivery: Procedure: primary low transverse Incision: dry, intact Other procedures: none complications: other (right lower extremity DVT) Discharge diagnosis: other (right lower extremity DVT), delivery ( primary for category 2 tracing) Hospital course: Hospital course complicated by right lower extremity DVT. She was started on Lovenox Consult please to Dr. Morales of hematology. Just spoke with Dr. Morales of hematology over the phone on 11/11/17. She can be discharged on Lovenox 90 mg every 12H and she should follow up in her office as soon as possible. Discussed above with the patient through restaurant worker. Explained the need to continue her Lovenox twice a day and to schedule follow up with hematology in our office. Issues: -Right lower extremity DVT -POD # 8 s/p 1ry LTCS - complicated by pre-eclampsia -Gestational diabetes Meds: -Lovenox 90 mg every 12 -Acetaminophen -Percocet (No ibuprofen) P: -Will discharge home at this time -Consulted case management for medication -Follow up with Dr. Morales of hematology Addendum: Patient cannot afford Lovenox, see prior note. After consultation with Dr. Morales of hematology again at [phone], plan at this time is to start Coumadin 5mg QD and bridge this with 5-7 days of Lovenox. She will need to follow up with Dr. Morales this November 15 at her office. Discussed all above with the patient through disability insurance claim examiner, she understood all and has no questions. Condition at discharge: Good Disposition: DC-01 TO HOME OR SELFCARE - Discharge Diagnoses (1) Status post primary low transverse section Status: Acute (2) Dvt femoral (deep venous thrombosis) Status: Acute (3) Pre-eclampsia affecting puerperium Status: Acute Plan - Discharge Medications Prescriptions: Acetaminophen 325 mg PO Q6HR #30 tablet Enoxaparin Sodium [Lovenox] 90 mg SQ Q12H #10 syringe Labetalol [Normodyne TAB] 200 mg PO BID #60 tablet Multivitamin with Iron [Multivitamins with Iron] 1 each PO DAILY #30 tablet oxyCODONE /ACETAMINOPHEN [Percocet 5/325] 1 tab PO Q6HR PRN #30 tablet PRN Reason: Pain Warfarin Sodium [Coumadin] 5 mg PO DAILY #30 tablet - Provider Discharge Summary Activity: no sex for 6 weeks, no heavy lifting 4 weeks, no strenuous exercise Diet: routine Instructions: other (take medication as prescribed) Additional instructions: [] Smoking cessation referral if applicable(refer to patient education folder for contact #) [] Refer to [facility]'s [facility] Booklet Call your doctor immediately for: * Fever > 100.5 * Heavy vaginal bleeding ( >1 pad per hour) * Severe persistent headache * Shortness of breath * Reddened, hot, painful area to leg or breast * Drainage or odor from incision. * Keep incision clean and dry at all times and follow doctor's instructions regarding bathing/showering - Follow up plan Follow up: LILLIE CARLISLE MD [Primary Care Provider] - 14 Days KERI MORALES MD [Staff Physician] - 7 Days
--- NOTE | 2017-11-11 13:15 | Event Note ---
Date: 11/11/17 Patient cannot afford Lovenox, see prior note. After consultation with Dr. Up of hematology again at [phone], plan at this time is to start Coumadin 5mg QD and bridge this with 5-7 days of Lovenox. She will need to follow up with Dr. Up this November 15 at her office. Discussed all above with the patient through rock mason, she understood all and has no questions.
[2017-11-11] MEDS ORDERED: Fluarix Quad 2017-2018(36 MOS+ IM ONE (15:49)
[2017-11-11 17:53] VITALS: BP 142/78
--- NOTE | 2017-11-13 12:50 | Vascular Lab Report ---
Right Lower Extremity Venous Duplex Study: Reason for Exam: Venous thrombosis. Comments on the Right: Acute thrombus is seen in the peroneal and soleal veins of the right calf. This finding is similar to a previous study dated November 04, 2017. The remaining veins visualized are freely compressible without evidence of internal echogenicity. Spontaneous and phasic flow is present proximally. Comments on the Left: A limited duplex study was done of the proximal veins of the left lower extremity. All veins visualized are freely compressible without evidence of internal echogenicity. Flow is spontaneous and phasic throughout. No evidence of acute or chronic thrombus is seen in any of the vessels visualized. Impression: No evidence of acute or chronic deep in the right lower extremity.
== END 2017-11-11 16:45 | disposition home or self-care (01) | DRG 765 ==
LOC: LD 20:42 → TRG 20:42 → LD 21:34 → OB 11-03 06:04
PROVIDERS: ADMIT Obstetrics & Gynecology; ATTEND Obstetrics & Gynecology
PROC: 10D00Z1 Extraction of Products of Conception, Low, Open Approach (ICD-10-PCS; principal; 2017-11-03)
PROC: 3E0234Z Introduction of Serum, Toxoid and Vaccine into Muscle, Percutaneous Approach (ICD-10-PCS; 2017-11-11)
DX: O14.14 Severe pre-eclampsia complicating childbirth (principal); O87.1 Deep phlebothrombosis in the puerperium; O24.12 Pre-existing type 2 diabetes mellitus, in childbirth; Z3A.36 36 weeks gestation of pregnancy; I82.401 Acute embolism and thrombosis of unspecified deep veins of right lower extremity; O75.0 Maternal distress during labor and delivery; O36.5930 Maternal care for other known or suspected poor fetal growth, third trimester, not applicable or unspecified; O99.02 Anemia complicating childbirth; D64.9 Anemia, unspecified; O99.214 Obesity complicating childbirth; O42.913 Preterm premature rupture of membranes, unspecified as to length of time between rupture and onset of labor, third trimester; E66.9 Obesity, unspecified; Z37.0 Single live birth; Z23 Encounter for immunization; Z68.35 Body mass index [BMI] 35.0-35.9, adult; E11.9 Type 2 diabetes mellitus without complications
CPT/HCPCS: 36415; 76816; 76819; 80053; 81001; 82962; 83036; 83615; 83735; 85014; 85018; 85025; 86592; 86706; 86762; 86803; 86850; 86900; 86901; 86920; 87806; 90471; 90686; 90715; 99211; G0463; J0290; J0360; J0690; J1650; J1815; J1885; J2270; J2370; J2405; J2590; J2765; J3475; J7120; J7121

== ENCOUNTER 2019-08-25 17:48 | Emergency (ER) | payer SELFPAY ==
[2019-08-25 18:46] VITALS: BP 117/75
--- NOTE | 2019-08-25 20:11 | Emergency Department Report ---
ED General Adult HPI - General Chief complaint: Earache Stated complaint: EAR PAIN Time Seen by Provider: 08/25/19 19:48 Source: patient Mode of arrival: Ambulatory Limitations: No Limitations - History of Present Illness Initial comments: Patient presents to the emergency department a chief complaint of left ear pain 2 days. Patient states that 2 days ago a cockroach crawled into her ear canal and they remove it with tweezers assessment time she's had left ear pain and is concerned that parts of the [place] can still be in her ear. Patient has no other complaints. -: Sudden Improves with: none Worsens with: none Associated Symptoms: denies other symptoms Treatments Prior to Arrival: none - Related Data Previous Rx's Medication Instructions Recorded Last Taken Type Multivitamin with Iron 1 each PO DAILY #30 tablet 11/03/17 Unknown Rx [Multivitamins with Iron] oxyCODONE /ACETAMINOPHEN [Percocet 1 tab PO Q6HR PRN #30 tablet 11/03/17 Unknown Rx 5/325] Acetaminophen 325 mg PO Q6HR #30 tablet 11/11/17 Unknown Rx Enoxaparin Sodium [Lovenox] 90 mg SQ Q12H #10 syringe 11/11/17 Unknown Rx Labetalol [Labetalol 200mg TAB] 200 mg PO BID #60 tablet 11/11/17 Unknown Rx Warfarin Sodium [Coumadin] 5 mg PO DAILY #30 tablet 11/11/17 Unknown Rx Cyclobenzaprine [Flexeril] 10 mg PO TID PRN #12 tablet 10/16/18 Unknown Rx Ibuprofen [Motrin] 600 mg PO Q8H PRN #12 tablet 10/16/18 Unknown Rx Naproxen [Naprosyn] 500 mg PO BID PRN #20 tablet 08/25/19 Unknown Rx Sulfamethoxazole/Trimethoprim 1 each PO BID #14 tablet 08/25/19 Unknown Rx [Bactrim DS TAB] Allergies Allergy/AdvReac Type Severity Reaction Status Date / Time No Known Drug Allergies Allergy none Verified 11/02/17 21:26 ED Review of Systems ROS: Stated complaint: EAR PAIN Other details as noted in HPI Comment: All other systems reviewed and negative Constitutional: denies: chills, fever Eyes: denies: eye pain, eye discharge, vision change ENT: ear pain. denies: throat pain Respiratory: denies: cough, shortness of breath, wheezing Cardiovascular: denies: chest pain, palpitations Endocrine: no symptoms reported Gastrointestinal: denies: abdominal pain, nausea, diarrhea Genitourinary: denies: urgency, dysuria, discharge Musculoskeletal: denies: back pain, joint swelling, arthralgia Skin: denies: rash, lesions Neurological: denies: headache, weakness, paresthesias Psychiatric: denies: anxiety, depression Hematological/Lymphatic: denies: easy bleeding, easy bruising ED Past Medical Hx - Past Medical History Previous Medical History?: Yes Hx Hypertension: Yes (PIH) Hx Congestive Heart Failure: No Hx Diabetes: No Hx Deep Vein Thrombosis: No Hx Renal Disease: No Hx Sickle Cell Disease: No Hx Seizures: No Hx Asthma: No Hx COPD: No - Surgical History Past Surgical History?: Yes Additional Surgical History: x 1 - Social History Smoking Status: Never Smoker Substance Use Type: None - Medications Home Medications: Home Medications Medication Instructions Recorded Confirmed Last Taken Type Multivitamin with Iron 1 each PO DAILY #30 tablet 11/03/17 Unknown Rx [Multivitamins with Iron] oxyCODONE /ACETAMINOPHEN [Percocet 1 tab PO Q6HR PRN #30 tablet 11/03/17 Unknown Rx 5/325] Acetaminophen 325 mg PO Q6HR #30 tablet 11/11/17 Unknown Rx Enoxaparin Sodium [Lovenox] 90 mg SQ Q12H #10 syringe 11/11/17 Unknown Rx Labetalol [Labetalol 200mg TAB] 200 mg PO BID #60 tablet 11/11/17 Unknown Rx Warfarin Sodium [Coumadin] 5 mg PO DAILY #30 tablet 11/11/17 Unknown Rx Cyclobenzaprine [Flexeril] 10 mg PO TID PRN #12 tablet 10/16/18 Unknown Rx Ibuprofen [Motrin] 600 mg PO Q8H PRN #12 tablet 10/16/18 Unknown Rx Naproxen [Naprosyn] 500 mg PO BID PRN #20 tablet 08/25/19 Unknown Rx Sulfamethoxazole/Trimethoprim 1 each PO BID #14 tablet 08/25/19 Unknown Rx [Bactrim DS TAB] ED Physical Exam - General Limitations: No Limitations General appearance: alert, in no apparent distress - Head Head exam: Present: atraumatic, normocephalic - Eye Eye exam: Present: normal appearance - ENT ENT exam: Present: other (right tympanic membrane is intact. Left tympanic membranes is ruptured) - Neck Neck exam: Present: normal inspection - Respiratory Respiratory exam: Present: normal lung sounds bilaterally. Absent: respiratory distress - Cardiovascular Cardiovascular Exam: Present: regular rate, normal rhythm. Absent: systolic murmur, diastolic murmur, rubs, gallop - GI/Abdominal GI/Abdominal exam: Present: soft, normal bowel sounds - Extremities Exam Extremities exam: Present: normal inspection - Back Exam Back exam: Present: normal inspection - Neurological Exam Neurological exam: Present: alert, oriented X3 - Psychiatric Psychiatric exam: Present: normal affect, normal mood - Skin Skin exam: Present: warm, dry, intact, normal color. Absent: rash ED Course Vital Signs 08/25/19 18:44 Temperature 98.1 F Pulse Rate 81 Respiratory 16 Rate Blood Pressure 117/75 [Left] O2 Sat by Pulse 100 Oximetry ED Medical Decision Making - Medical Decision Making Discussed plan of care with the patient and her son and reviewed Evidence based treatment Critical care attestation.: If time is entered above; I have spent that time in minutes in the direct care of this critically ill patient, excluding procedure time. ED Disposition Clinical Impression: Tympanic membrane rupture, traumatic Disposition: DC-01 TO HOME OR SELFCARE Is pt being admited?: No Does the pt Need Aspirin: No Condition: Stable Instructions: Ruptured Eardrum (ED) Additional Instructions: return if worse Referrals: PRIMARY CARE, [Primary Care Provider] - 3-5 Days SOFI STARK MD [Staff Physician] - 3-5 Days Time of Disposition: 20:09
== END 2019-08-25 20:19 | disposition home or self-care (01) ==
LOC: ED 17:48
DX: H72.92 Unspecified perforation of tympanic membrane, left ear (principal); I10 Essential (primary) hypertension; Z79.899 Other long term (current) drug therapy; Z79.1 Long term (current) use of non-steroidal anti-inflammatories (NSAID)
CPT/HCPCS: 99281